=== PATIENT | female | born 1980 | race Caucasian/White ===

== ENCOUNTER 2020-08-21 20:11 | Inpatient (IN) | payer BC, OTHER ==
[~2020-08-21] VITALS: Ht 170.2 cm; Wt 73.7 kg
[2020-08-21 21:22] LABS: BASOPHILS % (AUTO) 0 % (0-1); EOSINOPHILS % (AUTO) 1 % (1-7); LYMPHOCYTES % (AUTO) 36 % (22-44); MEAN CORPUSCULAR HGB CONC 33.4 g/dL (32.4-35.8); MEAN PLATELET VOLUME 8.5 fL (7.4-10.4); MONOCYTES % (AUTO) 8 % (2-9); NEUTROPHILS % (AUTO) 55 % (42-75); PLATELET COUNT 424 x10^3/uL (130-400); RED BLOOD COUNT 3.57 x10^6/uL (3.82-5.3); RED CELL DISTRIBUTION WIDTH 14.6 % (9.6-15.2)
[2020-08-21 21:34] LABS: ALANINE AMINOTRANSFERASE 80 U/L (12-78); ALBUMIN 1.7 g/dL (3.4-5.0); CALCIUM 6.7 mg/dL (8.5-10.1); CHLORIDE 109 mmol/L (98-107); CREATININE 0.56 mg/dL (0.55-1.02)
[2020-08-21 21:38] LABS: ALKALINE PHOSPHATASE 175 U/L (45-117); BILIRUBIN,TOTAL 0.6 mg/dL (0.2-1.0); TOTAL PROTEIN 4.7 g/dL (6.4-8.2)
[2020-08-21 21:44] LABS: ANION GAP 11 mmol/L (5-15)
--- NOTE | 2020-08-21 21:50 | NUR ---
program services planner: Pt ambulatory to room from lobby at this time.
--- NOTE | 2020-08-21 21:52 | NUR ---
PT. TO ROOM FROM LOBBY VIA W/C AT THIS TIME.
--- NOTE | 2020-08-21 21:55 | NUR ---
PER PHARMACY OK TO HANG BOTH K+ AND BANANA BAG TOGETHER.
[2020-08-21] MEDS ORDERED: MAGNESIUM SULFATE 1 GM, THIAMINE 100 MG, FOLIC ACID 1 MG, MVI ADULT 10 ML in SODIUM CHL... IV ONE (22:00)
[2020-08-21] MEDS ORDERED: SODIUM CHLORIDE FLUSH 10ML SYR IVF ONE (22:00)
[2020-08-21] MEDS ORDERED: POTASSIUM CHLORIDE 40 MEQ in SODIUM CHLORIDE 0.9% 500 ML IV ONE (22:00)
[2020-08-21] MEDS ORDERED: CALCIUM GLUCONATE 4.6 MEQ/10 ML ONE (22:15)
[2020-08-21] MEDS ORDERED: POTASSIUM CHLORIDE 20 MEQ TAB.ER.PRT ONE (22:15)
[2020-08-21] MEDS ORDERED: CALCIUM GLUCONATE 0.46MEQ/1ML IVPush ONE (22:30)
--- NOTE | 2020-08-21 22:38 | NUR ---
SUMMARY NOTE: PT. TO ED WITH C/O BLE SWELLING OFF/ON SINCE APRIL. PT. STATES THAT SHE HAS BEEN TAKING HER [employer]S "WATER PILLS" X 2 MONTHS OFF/ON TO ASSIST WITH THE LOWER EXTERMITY EDEMA. PT. HAS HX OF WEIGHT LOSS SURGERIES X 2 IN THE PAST. CRITAL K+ REPORTED WHILE PT. WAS IN LOBBY. PT. WAS BROUGHT BACK TO ROOM AND NEW EKG DONE. PT. ON ALL MONITORS. NSR NOTED ON MONITOR. PT. HAS BEEN MEDICATED PER APR. IVF'S INFUSING PER APR. PT. MEDICATED PER APR. PT. ONLY C/O PAIN TO LE WHEN ATTEMPTING TO WALK OR LIFT OFF BED. 4+ BILAT PITTING, WHEEPING EDEMA. RASH TO BILAT UPPER LEGS/GROIN THAT PT. STATES STARTED ABOUT 4 DAYS AGO.
[2020-08-21] MEDS ORDERED: TOPI200T25 PO (23:03)
[2020-08-21] MEDS ORDERED: AMIT100T PO (23:03)
[2020-08-21] MEDS ORDERED: PREG75CA PO (23:03)
[2020-08-21] MEDS ORDERED: LEVE750T37 PO (23:03)
[2020-08-21] MEDS ORDERED: METH-640 PO (23:03)
[2020-08-21] MEDS ORDERED: GALC120P IM (23:03)
--- NOTE | 2020-08-21 23:19 | NUR ---
CATRACHITAH TO BS TO EVAL PT. FOR ADMISSION
[2020-08-21] MEDS ORDERED: ALBUMIN HUMAN 25% 100 ML IV ONE (23:30)
[2020-08-21] MEDS ORDERED: ACETAMINOPHEN 325 MG TABLET PO PRN (23:30)
[2020-08-21] MEDS ORDERED: MAGNESIUM SULFATE PMX 2GM/50ML 50 ML IV ONE (23:30)
[2020-08-21] MEDS ORDERED: KETOROLAC 30 MG/1 ML IV PRN (23:30)
[2020-08-21] MEDS ORDERED: DOCUSATE 100 MG CAPSULE PO PRN (23:30)
[2020-08-21] MEDS ORDERED: ENALAPRILAT 1.25 MG/ML, 2ML IVPush PRN (23:30)
[2020-08-21] MEDS ORDERED: ONDANSETRON ODT 4 MG PO PRN (23:30)
[2020-08-21] MEDS ORDERED: GUAIFENESIN/DM 200-20MG, 10ML UDC PO PRN (23:30)
[2020-08-22] MEDS ORDERED: AMITRIPTYLINE 50 MG TABLET PO PRN
--- NOTE | 2020-08-22 00:15 | NUR ---
REPORT TO MARCELA DOUGLASS. FLOOR READY FOR PT. TRANSPORT.
[2020-08-22 01:09] VITALS: BP 93/61
[2020-08-22] MEDS: ENOXAPARIN 30 MG/0.3 ML SQ SCH ×2 (01:26→13:30)
[2020-08-22 02:02] VITALS: BP 93/61
[2020-08-22 05:56] LABS: BASOPHILS % (AUTO) 1 % (0-1); EOSINOPHILS % (AUTO) 1 % (1-7); LYMPHOCYTES % (AUTO) 48 % (22-44); MEAN CORPUSCULAR HEMOGLOBIN 31.8 pg (27.0-34.8); MEAN CORPUSCULAR HGB CONC 33.1 g/dL (32.4-35.8); MEAN PLATELET VOLUME 8.4 fL (7.4-10.4); MONOCYTES % (AUTO) 9 % (2-9); NEUTROPHILS % (AUTO) 41 % (42-75); PLATELET COUNT 330 x10^3/uL (130-400); RED CELL DISTRIBUTION WIDTH 14.5 % (9.6-15.2)
[2020-08-22 06:04] LABS: ANION GAP 7 mmol/L (5-15); CALCIUM 6.9 mg/dL (8.5-10.1); CHLORIDE 115 mmol/L (98-107)
[2020-08-22 06:14] LABS: CREATININE 0.45 mg/dL (0.55-1.02)
[2020-08-22] MEDS ORDERED: D5%-0.9% NACL+KCL 20MEQ 1,000 ML IV SCH (06:30)
[2020-08-22 07:31] LABS: MICROSCOPIC AUTO
[2020-08-22 07:45] VITALS: BP 85/55
[2020-08-22] MEDS: TOPIRAMATE 100 MG TABLET PO SCH ×2 (08:06→20:36)
[2020-08-22] MEDS: LEVETIRACETAM 500 MG TABLET PO SCH ×2 (08:06→20:36)
[2020-08-22] MEDS: PREGABALIN 75 MG CAPSULE PO SCH ×2 (08:07→20:36)
[2020-08-22] MEDS: METHOCARBAMOL 750 MG TABLET PO PRN ×2 (08:16→21:07)
[2020-08-22] MEDS: HYDROCORTISONE CRM 1%, 30GM TP SCH ×2 (08:16→20:36)
[2020-08-22] MEDS ORDERED: POTASSIUM CHLORIDE 20 MEQ TAB.ER.PRT ONE (10:12)
[2020-08-22] MEDS: NS + 20MEQ KCL 1,000 ML IV SCH ×2 (10:30→22:16)
[2020-08-22] MEDS ORDERED: POTASSIUM CHLORIDE 20 MEQ TAB.ER.PRT PO ONE ×2 (10:30→13:00)
[2020-08-22 12:29] LABS: OCCULT BLOOD NEGATIVE (NEGATIVE)
[2020-08-22 12:35] VITALS: BP 96/65
[2020-08-22] MEDS ORDERED: PANT40TA3 PO (15:28)
[2020-08-22 20:16] LABS: OCCULT BLOOD NEGATIVE (NEGATIVE)
[2020-08-22 20:29] VITALS: BP 95/65
[2020-08-22] MEDS ORDERED: POTASSIUM CHLORIDE 20 MEQ, MAGNESIUM SULFATE 2 GM, THIAMINE 200 MG, MVI ADULT 10 ML, FO... IV SCH (22:00)
[2020-08-22] MEDS ORDERED: POTASSIUM CHLORIDE 20 MEQ TAB.ER.PRT PO SCH (22:04)
[2020-08-23 01:44] VITALS: BP 95/63
[2020-08-23] MEDS: ENOXAPARIN 30 MG/0.3 ML SQ SCH ×2 (01:50→13:30)
[2020-08-23 05:35] LABS: BASOPHILS % (AUTO) 1 % (0-1); EOSINOPHILS % (AUTO) 1 % (1-7); LYMPHOCYTES % (AUTO) 49 % (22-44); MEAN CORPUSCULAR HEMOGLOBIN 32.3 pg (27.0-34.8); MEAN CORPUSCULAR HGB CONC 33.2 g/dL (32.4-35.8); MEAN PLATELET VOLUME 8.4 fL (7.4-10.4); MONOCYTES % (AUTO) 7 % (2-9); NEUTROPHILS % (AUTO) 42 % (42-75); PLATELET COUNT 342 x10^3/uL (130-400); RED BLOOD COUNT 2.78 x10^6/uL (3.82-5.3); RED CELL DISTRIBUTION WIDTH 14.8 % (9.6-15.2)
[2020-08-23 05:47] LABS: CALCIUM 6.7 mg/dL (8.5-10.1)
[2020-08-23 05:48] LABS: CREATININE 0.36 mg/dL (0.55-1.02)
[2020-08-23] MEDS ORDERED: PANTOPRAZOLE 40MG TABLET PO SCH (06:00)
[2020-08-23 06:47] LABS: ANION GAP 5 mmol/L (5-15); CHLORIDE 120 mmol/L (98-107)
[2020-08-23 07:15] VITALS: BP 96/63
[2020-08-23] MEDS: PREGABALIN 75 MG CAPSULE PO SCH (09:43)
[2020-08-23] MEDS: TOPIRAMATE 100 MG TABLET PO SCH (09:43)
[2020-08-23] MEDS: LEVETIRACETAM 500 MG TABLET PO SCH (09:44)
[2020-08-23] MEDS: HYDROCORTISONE CRM 1%, 30GM TP SCH (09:50)
[2020-08-23] MEDS: METHOCARBAMOL 750 MG TABLET PO PRN (11:26)
[2020-08-23] MEDS ORDERED: IRON SUCROSE COMPLEX 100MG/5ML IV SCH (13:00)
[2020-08-23 13:12] VITALS: BP 99/67
[2020-08-23] MEDS ORDERED: ENOXAPARIN 30 MG/0.3 ML SQ SCH (21:00)
[2020-08-23] MEDS ORDERED: ATOR40TA78 PO (22:27)
== END 2020-08-23 16:13 | disposition home or self-care (01) | DRG 640 ==
LOC: ED 23:15 → EDIP 23:24 → INTOOBSV 23:24 → OBSVTOIN 23:24 → 5SO 08-22 00:27 → CCU 08-23 09:44
PROVIDERS: ADMIT Internal Medicine; ATTEND Internal Medicine
DX: E87.6 Hypokalemia (principal); E43 Unspecified severe protein-calorie malnutrition; N39.0 Urinary tract infection, site not specified; D50.9 Iron deficiency anemia, unspecified; E87.2 Acidosis; E83.42 Hypomagnesemia; E83.51 Hypocalcemia; E86.0 Dehydration; E87.8 Other disorders of electrolyte and fluid balance, not elsewhere classified; F12.90 Cannabis use, unspecified, uncomplicated; F17.210 Nicotine dependence, cigarettes, uncomplicated; G40.409 Other generalized epilepsy and epileptic syndromes, not intractable, without status epilepticus; T50.2X5A Adverse effect of carbonic-anhydrase inhibitors, benzothiadiazides and other diuretics, initial encounter; Z86.73 Personal history of transient ischemic attack (TIA), and cerebral infarction without residual deficits; R42 Dizziness and giddiness; R60.0 Localized edema; R94.31 Abnormal electrocardiogram [ECG] [EKG]; Z68.25 Body mass index [BMI] 25.0-25.9, adult; Z90.49 Acquired absence of other specified parts of digestive tract
CPT/HCPCS: 36415; 71045; 80048; 80053; 81001; 82140; 82272; 82330; 82607; 82728; 83540; 83550; 83690; 83735; 83880; 84100; 84443; 84703; 85025; 85379; 87077; 87086; 87186; 93005; 96374; G0378; J0610; J1650; J1756; J1885; J3411; J3475; J3480; P9047; J7030; J7040